=== PATIENT | female | born 1980 | race Caucasian/White ===

== ENCOUNTER 2022-10-03 12:22 | Emergency (ER) | payer OTHER, MEDICAID, SELFPAY ==
[2022-10-03 12:32] VITALS: BP 158/106; PULSE 86; RESP 18; TEMP 36.9; O2SAT 99
--- NOTE | 2022-10-03 12:43 | ED.URI ---
HPI - URI/Sore Throat General Chief Complaint: Upper Respiratory Infection Stated Complaint: Sinus/Cough Time Seen by Provider: 10/03/22 12:43 Source: patient Mode of arrival: ambulatory Limitations: no limitations History of Present Illness HPI Narrative: 42-year-old female presents with complaint of sore throat, nasal congestion, sinus pressure, cough for 2-3 days. Afebrile. Taking Mucinex with little relief. Denies chest pain shortness of breath. No nausea vomiting diarrhea. All systems reviewed and negative except as noted above. Related Data Home Medications Medication Instructions Recorded Confirmed labetalol 200 mg tablet mg 10/03/22 loperamide 2 mg capsule mg 10/03/22 norethindrone 1 mg-ethinyl tablet 10/03/22 estradiol 20 mcg ()-iron 75 mg (7) tablet (10/02 (28)) Allergies Allergy/AdvReac Type Severity Reaction Status Date / Time No Known Allergies Allergy Verified 10/03/22 12:31 Review of Systems Review of Systems: CONSTITUTIONAL: Denies fever, chills, or sweats. EYES: Denies visual changes, redness, or discharge. ENT: Reports rhinorrhea, congestion, sore throat. Denies otalgia. CARDIOVASCULAR: Denies chest pain, palpitations, or edema. RESPIRATORY: reports cough or dyspnea. GASTROINTESTINAL: Denies abdominal pain, nausea, vomiting, or diarrhea. GENITOURINARY: Denies dysuria or hematuria. SKIN: Denies rash or itching. MUSCULOSKELETAL: Denies back pain, joint pain, or myalgia. NEUROLOGIC: Denies headache, numbness, or weakness. PSYCHIATRIC: Denies anxiety or depression. All other systems reviewed are negative, except as documented in HPI. PMFSH Comments At time of signature, agree with nursing past medical, surgical, social and family history. There is no relevant family history pertinent to the presenting complaint. Exam Narrative: GENERAL: This is a well-nourished, well-developed patient, in no apparent distress. HEAD: normocephalic, atraumatic. EYES: PERRL. Sclera clear/white. Vision is grossly intact. EARS: External ears normal, auditory canals clear and without drainage, TMs normal without perforation. Hearing grossly intact. NOSE: External nose normal with clear nasal drainage, moderate congestion. No sinus tenderness on palpation. THROAT: Mucous membranes moist, Clear postnasal drainage. NECK: Neck supple, non-tender without lymphadenopathy, masses or thyromegaly. CARDIOVASCULAR: Regular rate and rhythm without murmurs, gallops, or rubs. RESPIRATORY: Clear to auscultation. Breath sounds equal bilaterally. No wheezes, rales, or rhonchi. SKIN: warm, Dry, intact with no suspicious lesions or rash, good texture and turgor. NEURO: awake, alert, and oriented to person, place and time. There were no obvious focal neurologic abnormalities. EXTREMITIES: No joint tenderness, effusion, or edema noted. Course Course Level of Care: Express Care Visit Vital Signs Vital signs: Vital Signs Temperature 36.9 C 10/03/22 12:32 Pulse Rate 86 10/03/22 12:32 Respiratory Rate 18 10/03/22 12:32 Blood Pressure 158/106 H 10/03/22 12:32 Pulse Oximetry 99 10/03/22 12:32 Oxygen Delivery Room Air 10/03/22 12:32 Temperature 36.9 C 10/03/22 12:32 Pulse Rate 86 10/03/22 12:32 Respiratory Rate 18 10/03/22 12:32 Blood Pressure 158/106 H 10/03/22 12:32 Pulse Oximetry 99 10/03/22 12:32 Oxygen Delivery Room Air 10/03/22 12:32 Reviewed MDM - URI/Sore Throat MDM Narrative Medical decision making narrative: Patient is aware of diagnosis, understands and agrees to treatment plan. Anticipatory guidance given. Patient agrees to follow-up as directed and is aware of reasons to seek care at the emergency department. Portions of this record may have been created with voice recognition software Differential Diagnosis Differential diagnosis: Likely upper respiratory infection, sinusitis, viral infection and other ( COVID) Discharge Plan Discha
== END 2022-10-03 13:06 | disposition home or self-care (01) ==
PROVIDERS: Emergency Provider Nurse Practitioner Family; PCP Family Medicine
DX: J01.90 Acute sinusitis, unspecified (principal); Z20.822 Contact with and (suspected) exposure to COVID-19; I10 Essential (primary) hypertension
CPT/HCPCS: 87426; 99203; C9803; G0463